=== PATIENT | male | born 1980 | race Caucasian/White ===

== ENCOUNTER 2016-12-12 12:22 | Emergency (ER) | payer OTHER ==
[~2016-12-12 12:22] MED LIST: BENTYL20 MG PO; CLARITIN10 MG PO; TRAMADOL50 MG PO
[2016-12-12] MEDS ORDERED: PREDNISONE1 MG PO (13:04)
[2016-12-12] MEDS ORDERED: TYLENOL EXTRA500 M2 PO (13:05)
--- NOTE | 2016-12-12 14:17 | ED NECK/BACK PAIN COMPLAINT ---
History of Present Illness General Chief Complaint: Hip Injury Stated Complaint: LOWER BACK,HIP, AND LEG PAIN Source: patient Exam Limitations: no limitations Vital Signs & Intake/Output Vital Signs & Intake/Output Vital Signs Date Time Temp Pulse Resp B/P Pulse O2 O2 Flow FiO2 Ox Delivery Rate 12/12 1608 97.3 60 18 122/90 12/12 1447 97.0 80 118/76 12/12 1307 Room Air Room Air 12/12 1247 97.2 88 20 142/90 98 Room Air Allergies Uncoded Allergies: SEASONAL AND ENVIRONMENTAL (07/24/15) Triage Note: PT PRESENTS TO ER C/O OF LOWER BACK PAIN AND RIGHT LEG/ HIP PAIN. PT STATES PAIN STARTED AFTER MOVING A CHAIR AT [place] LAST WEEKEND. PT STATES HE WAS SEEN AT [facility] AND GIVEN FLEXRIL, PREDNISONE, AND NORCO AND TOLD TO FOLLOW UP WITH PCP. PT STATES HE HAS AN APPT NEXT WEEK BUT PAIN IS NOT BETTER Triage Nurses Notes Reviewed? yes HPI: This patient is a 36-year-old male who presented to the emergency department today for evaluation of lower back pain. The patient reported that on last weekend his son was diagnosed with strep throat, so he had to sleep on the floor for 2 nights. He reported that he was at [employer] on Thursday moving a chair when he felt, "my right hip and lower back light." He reported that with movement the pain in his lower back gets worse. He reported that this felt primarily in his right lower back and goes into his right hip and this far down as his right ankle. The pain is constant. No palliative factors. The pain gets up to an 8 out of 10. He reported he was seen at another hospital. No imaging was done at that time. He was given prednisone, hydrocodone, and Flexeril, which only mildly helped his symptoms. He has tried calling multiple orthopedic clinics, but reported that none of them take his insurance. He has an appointment with his primary care physician next Thursday for a well check. The patient denied any bowel or bladder incontinence. No saddle paresthesia. He denied any abdominal pain, nausea, vomiting, urinary burning, urgency, frequency, blood in the urine, numbness or tingling in his extremities, chest pain, breathing, or any other associated symptoms. (LUIS M WILLAMS,GAGE) Reconcile Medications Acetaminophen (Tylenol Extra Strength) 500 MG TABLET 1,000 MG PO 3-4XDP PRN PAIN (Reported) Dicyclomine Hydrochloride (Bentyl) 20 MG TAB 1 TAB PO 4 TIMES/DAY PRN INTESTINAL SPASMS Loratadine (Claritin) 10 MG TAB 1 TAB PO DAILY ALLERGIES (Reported) Prednisone 1 MG TABLET 4 TAB PO DAILY JOINT PAIN (Reported) TRAMADOL HCL (Tramadol) 50 MG TAB 1 TAB PO Q6P PRN PAIN Tramadol HCl 50 MG TABLET 1 TAB PO BIDP PRN PAIN (MARLYS VELÁSQUEZ,NICOLÁS) Past History Travel History Traveled to [place] past 21 day No Medical History Any Pertinent Medical History? see below for history Musculoskeletal: BACK PAIN Influenza Vaccine: 09/02/16 Surgical History Surgical History: non-contributory Psychosocial History What is your primary language Albanian Tobacco Use: Never used Family History Hx Contributory? No (GAGE ASENCIO PA-C) Review of Systems Review of Systems Constitutional: Reports: no symptoms. Eyes: Reports: no symptoms. Ears, Nose, Throat, Mouth: Reports: no symptoms. Respiratory: Reports: no symptoms. Cardiovascular: Reports: no symptoms. Gastrointestinal/Abdominal: Reports: no symptoms. Musculoskeletal: Reports: see HPI. Skin: Reports: no symptoms. Neurological/Psychological: Reports: no symptoms. All Other Systems: Reviewed and Negative (GAGE ASENCIO PA-C) Physical Exam Physical Exam Neck: normal inspection, supple, full range of motion, normal alignment Comments: Well-developed well-nourished person in no acute distress HEENT: Normal EENT exam, head normocephalic, moist mucous membranes Pupils equally round and reactive to light. Back: Antalgic gait. Midline tenderness of the lumbar spine. Right sided lumbar paraspinal musculature tenderness. No CVA tenderness. Negative straight leg raise bilaterally. Respiratory: No respiratory distress. Speaking in full sentences Abdomen: Soft, nontender and nondistended Extremity: No edema, no calf tenderness to palpation, normal and equal pulses. Neuro: Alert oriented x3, cranial nerves II through XII grossly intact. Skin: No appreciable rash on exposed skin, skin is warm and dry. Psych: Mood and affect is normal (GAGE ASENCIO PA-C) Progress Differential Diagnosis: AAA, aortic dissection, cauda equina syn, herniated disc , myofascial strain, pyelo/UTI, sciatica, spinal cord inj, thoracic outlet syn, T/L spine injury, ureterolithiasis Plan of Care: Orders Procedure Date/time Status CT LUMB SPINE WO IV CONTRAST 12/12 1411 Active Departure Departure Disposition: HOME OR SELF CARE Condition: Stable Clinical Impression Primary Impression: Bulging discs Referrals: CHRISTIANA VELÁSQUEZ,EDDIE Lazaro (PCP/Family) DIGNA VELÁSQUEZ,MARIA ALEJANDRA Additional Instructions: TAKE MEDICATION FOR PAIN PRESCRIBED. REST AND AVOID ANY HEAVY LIFTING. CALL THE ORTHOPEDIST WHOSE INFORMATION HAS BEEN PROVIDED TO YOU. RETURN FOR ANY WORSENING SYMPTOMS OR CONCERNS. Departure Forms: Customer Survey General Discharge Information Prescriptions: Current Visit Scripts Tramadol HCl 1 TAB PO BIDP PRN PAIN #10 TAB (LUIS M WILLAMS,GAGE) PA/ENAMEL PULVERIZER Co-Sign Statement Statement: ED Attending supervision documentation- [] I saw and evaluated the patient. I have also reviewed all the pertinent lab results and diagnostic results. I agree with the findings and the plan of care as documented in the PA's/ENAMEL PULVERIZER's documentation. [X] I have reviewed the ED Record and agree with the PA's/ENAMEL PULVERIZER's documentation. [] Additions or exceptions (if any) to the PAs/ENAMEL PULVERIZER's note and plan are summarized below: [] (MARLYS VELÁSQUEZ,NICOLÁS)
--- NOTE | 2016-12-12 16:02 | CT SCAN REPORT ---
EXAMINATION: CT LUMBAR SPINE WITHOUT CONTRAST CLINICAL INFORMATION: Low back pain. COMPARISON: Lumbar spine 04/20/2014. TECHNIQUE: Helical non-contrast CT images were obtained through the lumbar spine and 1.25 and 2.5 mm axial reconstructions were reviewed along with sagittal and coronal MPRs. DLP: 1083 mGy-cm FINDINGS: On sagittal reconstructed images, there is normal lumbar lordosis. The vertebral heights, alignment and disc heights are normal. There is no visible acute fracture, dislocation, or subluxation. No lytic or sclerotic process seen. At T12-L1 disc level, there is right anterolateral bridging osteophyte. There is no underlying disc bulge, herniation, or spinal stenosis. The neural foramina are patent bilaterally. At L1-L2 and L2-L3 disc levels, there is no significant disc bulge, herniation, or spinal stenosis. At L3-L4 disc level, there is minimal bulge without spinal stenosis. The neural foramina are patent bilaterally. At L4-L5 disc level, there is minimal bulge without spinal stenosis. The neural foramina are patent bilaterally. At L5-S1 disc level, there is no significant disc bulge, herniation, or spinal stenosis. The neural foramina are widely patent. IMPRESSION: Minimal bulges at L3-L4 and L4-L5 disc levels. There is no evidence of disc herniation or spinal stenosis. There is no nerve root impingement or neural foraminal narrowing. Minimal right ventral T12-L1 bridging osteophyte.
[2016-12-12 16:08] VITALS: BP 122/90
[2016-12-12] MEDS ORDERED: TRAMADOL HCL50 M1 PO (16:09)
== END 2016-12-12 16:22 ==
LOC: ERH 12:22
DX: M51.26 Other intervertebral disc displacement, lumbar region (principal)
CPT/HCPCS: 96372; J1885